=== PATIENT | male | born 1995 | race Caucasian/White ===

== ENCOUNTER 2017-10-08 13:43 | Emergency (ER) | payer OTHER, SELFPAY ==
[2017-10-08 13:53] VITALS: BP 142/80; PULSE 73; RESP 14; TEMP 37.6; O2SAT 99
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
[2017-10-08] MEDS: Acetaminophen 500 MG TAB 1000 MG PO (14:21)
[2017-10-08] MEDS: Ibuprofen 600 MG TAB PO (14:21)
== END 2017-10-08 15:28 | disposition home or self-care (01) ==
PROVIDERS: Emergency Provider Student in an Organized Health Care Education/Training Program
DX: S43.52XA Sprain of left acromioclavicular joint, initial encounter (principal); V18.0XXA Pedal cycle driver injured in noncollision transport accident in nontraffic accident, initial encounter; Y93.55 Activity, bike riding
CPT/HCPCS: 99284; 73000; L3650